=== PATIENT | male | born 1970 | race Caucasian/White ===

== ENCOUNTER 2016-06-08 09:19 | Emergency (ER) | payer MEDICAID ==
[~2016-06-08] VITALS: Ht 185.4 cm; Wt 68.0 kg
[~2016-06-08 09:19] MED LIST: ADVI200C9 PO
[2016-06-08 09:25] VITALS: BP 136/63; PULSE 80; RESP 16; TEMP 98.1; O2SAT 98
[2016-06-08] MEDS ORDERED: CEPH-460 PO (09:51)
[2016-06-08] MEDS ORDERED: BACT800T5 PO (09:51)
--- NOTE | 2016-06-08 09:54 | PD ---
HPI Chief Complaint: Skin Problem Time Seen by Provider: 09:47 Travel History International Travel<30 days: No Contact w/Intl Traveler<30days: No Traveled to known affect area: No History of Present Illness HPI 45-year-old male presents to the emergency Department with complaint of multiple lumps to the back of his head for the last 3-4 months. He said he was seen here before and was told he had a sebaceous cyst. Since he had been seen previously more sebaceous cysts have developed. He says he's been doing warm compresses to the area as told and he has been squeezing the area with drainage coming out. He denies pain to the area. Reports itching to the area. Denies fever, chills, nausea, vomiting. Has not taken any medications or tried any other treatments to alleviate symptoms. No known allergies. No established primary care provider. Denies significant past medical history. No other modifying factors or associated signs and symptoms. PFSH Social History Alcohol Use: No Tobacco Use: Yes Substance Use: No Allergies-Medications (Allergen,Severity, Reaction): Coded Allergies: No Known Allergies (Unverified , 06/08/16) Reported Meds & Prescriptions Reported Meds & Active Scripts Active Bactrim DS (Sulfamethoxazole-Trimethoprim) 800-160 Mg Tab 1 Tab PO BID 10 Days Keflex (Cephalexin) 500 Mg Cap 500 Mg PO Q6H 10 Days Review of Systems Except as stated in HPI: all other systems reviewed are Neg Physical Exam Narrative GENERAL: Well-nourished, well-developed male patient, in no acute distress; afebrile, nontoxic-appearing SKIN: Warm and dry. Multiple small, approximately 1 cm lumps, to posterior scalp without erythema; some areas are with minimal amount of purulent drainage. No tenderness to palpation. HEAD: Atraumatic. Normocephalic. EYES: Pupils equal and round. No scleral icterus. No injection or drainage. ENT: Mucosa pink and moist. Airway patent. NECK: Trachea midline. CARDIOVASCULAR: Regular rate. RESPIRATORY: No accessory muscle use. GASTROINTESTINAL: Flat. MUSCULOSKELETAL: No obvious deformities. No clubbing. No cyanosis. No edema. NEUROLOGICAL: Awake and alert. Oriented 3. No obvious cranial nerve deficits. Motor grossly within normal limits. Normal speech. PSYCHIATRIC: Appropriate mood and affect; insight and judgment normal. Data Data Last Documented VS Vital Signs Date Time Temp Pulse Resp B/P Pulse Ox O2 Delivery O2 Flow Rate FiO2 06/08/16 09:25 98.1 80 16 136/63 98 Orders Wound Culture And Gram Stain (06/08/16 09:54) [facility] Medical Decision Making Medical Screen Exam Complete: Yes Emergency Medical Condition: Yes Medical Record Reviewed: Yes Differential Diagnosis Sebaceous cyst, infected cyst, abscess, folliculitis Narrative Course 45-year-old male physical exam consistent with infected sebaceous cyst to his posterior scalp. Patient is afebrile and nontoxic-appearing. He denies fever, chills, nausea, vomiting. There is purulent drainage coming from a couple the areas to the posterior scalp. Wound culture pending. Keflex, Bactrim prescribed for home. Patient is medically cleared and stable for discharge. Discussed reasons to return to the emergency department. Instructed patient to follow up with primary care provider. Patient agrees with treatment plan. The patients vital signs are stable and the patient is stable for outpatient follow- up and treatment. Patient discharged home, stable and in no acute distress. Diagnosis Primary Impression: Infected sebaceous cyst Referrals: Primary Care Physician Patient Instructions: Cyst (ED), General Instructions Additional Instructions: Complete full course of antibiotics Warm compresses to the affected area Keep area clean and dry Ibuprofen or Tylenol as directed and as needed for pain and inflammation Follow-up with primary care provider Return to emergency department immediately with worsening of symptoms Med/Other Pt SpecificInfo: Prescription(s) given Scripts Sulfamethoxazole-Trimethoprim (Bactrim DS)800-160 Mg Tab1 Tab PO BID 10 Days Ref 0 Prov:Suri Tello 06/08/16 Cephalexin (Keflex)500 Mg [id number] Mg PO Q6H 10 Days Ref 0 Prov:Suri Tello 06/08/16 Disposition: 01 DISCHARGE HOME Condition: Stable Suri Tello Jun 08, 2016 09:54
== END 2016-06-08 10:04 | disposition home or self-care (01) ==
LOC: NEPB 09:19
DX: L72.3 Sebaceous cyst (principal); B95.61 Methicillin susceptible Staphylococcus aureus infection as the cause of diseases classified elsewhere; Z72.0 Tobacco use
CPT/HCPCS: 86403; 87070; 87186; 87205; 99283

== ENCOUNTER 2016-08-01 17:02 | Emergency (ER) | payer MEDICAID ==
[~2016-08-01] VITALS: Ht 182.9 cm; Wt 72.5 kg
[~2016-08-01 17:02] MED LIST changes: -ADVI200C9 PO; +BACT800T5 PO; +CEPH-460 PO
[2016-08-01 17:04] VITALS: BP 126/77; PULSE 100; RESP 16; TEMP 97.4; O2SAT 96
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
[2016-08-01] MEDS ORDERED: IBUP800T23 PO (18:07)
[2016-08-01] MEDS ORDERED: IBUPROFEN 800 MG TAB PO ONE (18:30)
== END 2016-08-01 18:41 | disposition home or self-care (01) ==
LOC: NEPK 17:02
DX: S20.219A Contusion of unspecified front wall of thorax, initial encounter (principal); V17.4XXA Pedal cycle driver injured in collision with fixed or stationary object in traffic accident, initial encounter; Y93.55 Activity, bike riding
CPT/HCPCS: 71020; 71120; 99284